=== PATIENT | female | born 1990 | race Caucasian/White ===

== ENCOUNTER 2017-03-22 18:53 | Emergency (ER) | payer MEDICAID ==
[~2017-03-22] VITALS: Ht 154.9 cm; Wt 53.1 kg
[~2017-03-22 18:53] MED LIST: ALPR0.25 PO; CA C-2 PO; CALC0.5C11 PO; CALC500T3 PO
--- NOTE | 2017-03-22 19:18 | NUR ---
Assumed care of patient at this time. Pt resting in a position of comfort for self. Pt seen by MD. [place] at bedside
[2017-03-22 19:34] LABS: BASOPHILS % (AUTO) 0.8 % (0.0-2.0); EOSINOPHILS # (AUTO) 0.1 K/uL (0.0-0.7); EOSINOPHILS % (AUTO) 0.9 % (0.0-7.0); HEMATOCRIT 39.5 % (31.2-41.9); HEMOGLOBIN 13.4 g/dL (10.9-14.3); LYMPHOCYTES # (AUTO) 2.4 K/uL (20.0-40.0); LYMPHOCYTES % (AUTO) 39.2 % (20.5-51.5); MEAN CORPUSCULAR HEMOGLOBIN 28.3 uug (24.7-32.8); MEAN CORPUSCULAR HGB CONC 34 g/dL (32.3-35.6); MEAN CORPUSCULAR VOLUME 83.5 fL (75.5-95.3); MONOCYTES # (AUTO) 0.5 K/uL (2.0-10.0); NEUTROPHILS # (AUTO) 3.2 K/uL (1.8-8.9); NEUTROPHILS % (AUTO) 51.1 % (38.5-71.5); PLATELET COUNT (AUTO) 282 K/uL (179-408); RED BLOOD CELL COUNT(AUTO) 4.74 MIL/uL (3.63-4.92); WHITE BLOOD COUNT (AUTO) 6.2 K/uL (3.8-11.8)
[2017-03-22 19:38] LABS: CREATININE 0.8 mg/dL (0.6-1.3); POTASSIUM 3.8 mmol/L (3.5-5.1)
--- NOTE | 2017-03-22 19:50 | NUR ---
Pt stable for discharge per MD. Pt given ACI. Pt verbalized understanding of dc instructions. Pt ambulated out of ER with steady gait.
[2017-03-22 20:08] VITALS: BP 119/69
== END 2017-03-22 19:50 | disposition home or self-care (01) ==
LOC: ER 18:53
DX: M94.0 Chondrocostal junction syndrome [Tietze] (principal); Z88.1 Allergy status to other antibiotic agents; E20.9 Hypoparathyroidism, unspecified
CPT/HCPCS: 36415; 71045; 84703; 85025; 93005; A4663

== ENCOUNTER 2017-05-12 05:03 | Emergency (ER) | payer MEDICAID ==
[~2017-05-12] VITALS: Ht 154.9 cm; Wt 54.4 kg
[2017-05-12] MEDS ORDERED: METOCLOPRAMIDE HCL 10 MG/2 ML VIAL IV ONE (05:30)
[2017-05-12] MEDS ORDERED: LORAZEPAM 2 MG/1 ML VIAL IV ONE (05:30)
[2017-05-12] MEDS ORDERED: METOCLOPRAMIDE HCL 10 MG/2 ML VIAL ONE (05:41)
[2017-05-12] MEDS ORDERED: LORAZEPAM 2 MG/1 ML VIAL ONE (05:41)
--- NOTE | 2017-05-12 05:46 | NUR ---
PT IS IN ROOM #1B. DR BEAULIEU EVALUATED THE PT.
[2017-05-12] MEDS ORDERED: diphenhydrAMINE 50 MG/1 ML VIAL ONE (05:54)
[2017-05-12] MEDS ORDERED: diphenhydrAMINE 50 MG/1 ML VIAL IV ONE (06:00)
[2017-05-12] MEDS ORDERED: methylPREDNISolone SOD SUCC 125 MG/2 ML VIAL ONE (06:12)
[2017-05-12] MEDS ORDERED: methylPREDNISolone SOD SUCC 125 MG/2 ML VIAL IV ONE (06:15)
--- NOTE | 2017-05-12 06:22 | NUR ---
PT WAS D/C TO HOME AFTER DR BEAULIEU EVALUATION. D/C INSTRUCTIONS GIVEN TO THE PT. NO S/S OF DISTRESS AT THIS TIME. GAIT IS STABLE. NO N/V. NO SOB. PT DENIES DIZZINESS AND PAIN.
[2017-05-12 06:25] VITALS: BP 125/63
== END 2017-05-12 06:26 | disposition home or self-care (01) ==
LOC: ER 05:03
DX: R42 Dizziness and giddiness (principal); Z88.1 Allergy status to other antibiotic agents; Z88.8 Allergy status to other drugs, medicaments and biological substances; Z79.899 Other long term (current) drug therapy
CPT/HCPCS: A4663; J1200; J2060; J2765; J2930

== ENCOUNTER 2017-05-12 17:00 | Emergency (ER) | payer MEDICAID ==
[~2017-05-12] VITALS: Ht 154.9 cm; Wt 54.4 kg
[2017-05-12 17:50] LABS: BASOPHILS # (AUTO) 0.1 K/uL (0.0-8.0); BASOPHILS % (AUTO) 1.2 % (0.0-2.0); HEMATOCRIT 42.1 % (31.2-41.9); HEMOGLOBIN 13.8 g/dL (10.9-14.3); LYMPHOCYTES # (AUTO) 0.4 K/uL (20.0-40.0); MEAN CORPUSCULAR HEMOGLOBIN 27.3 uug (24.7-32.8); MEAN CORPUSCULAR HGB CONC 33 g/dL (32.3-35.6); MEAN CORPUSCULAR VOLUME 83.3 fL (75.5-95.3); MONOCYTES # (AUTO) 0.1 K/uL (2.0-10.0); MONOCYTES % (AUTO) 1.8 % (0.0-11.0); NEUTROPHILS # (AUTO) 7.4 K/uL (1.8-8.9); PLATELET COUNT (AUTO) 309 K/uL (179-408); RED BLOOD CELL COUNT(AUTO) 5.06 MIL/uL (3.63-4.92); WHITE BLOOD COUNT (AUTO) 8.1 K/uL (3.8-11.8)
[2017-05-12 17:59] LABS: CREATININE 0.7 mg/dL (0.6-1.3); POTASSIUM 4.4 mmol/L (3.5-5.1)
[2017-05-12 18:05] LABS: BILIRUBIN,TOTAL 0.3 mg/dL (0.2-1.0); TOTAL PROTEIN, SERUM 8.7 g/dL (6.4-8.2)
--- NOTE | 2017-05-12 18:10 | NUR ---
DR MOORE MADE PATIENT AWARE OF TEST RESULTS WILL BE DC HOME.
--- NOTE | 2017-05-12 18:17 | NUR ---
Patient discharged to home in stable conditon. Written and verbal after care instructions given. Patient verbalizes understanding of instructions.
[2017-05-12 18:18] VITALS: BP 115/78
== END 2017-05-12 18:19 | disposition home or self-care (01) ==
LOC: ER 17:01
DX: Z00.00 Encounter for general adult medical examination without abnormal findings (principal); Z88.1 Allergy status to other antibiotic agents; Z88.8 Allergy status to other drugs, medicaments and biological substances; Z79.899 Other long term (current) drug therapy
CPT/HCPCS: 36415; 85025; A4663

== ENCOUNTER 2018-09-21 04:42 | Emergency (ER) | payer MEDICAID ==
[~2018-09-21] VITALS: Ht 154.9 cm; Wt 57.2 kg
[~2018-09-21 04:42] MED LIST changes: -CALC500T3 PO; +CALC500T88 PO
[2018-09-21 05:29] LABS: CREATININE 0.7 mg/dL (0.6-1.3); POTASSIUM 3.5 mmol/L (3.5-5.1)
[2018-09-21] MEDS ORDERED: CALCIUM GLUCONATE IV 1 GM in IV DEXTROSE 5% 50 ML IV ONE (06:15)
[2018-09-21] MEDS ORDERED: MAGNESIUM SULFATE/D5W 100 ML IV SCH (06:15)
[2018-09-21] MEDS ORDERED: CALCIUM GLUCONATE 1 GM/10 ML VIAL IV ONE (06:18)
[2018-09-21] MEDS ORDERED: MAGNESIUM SULFATE/D5W 100 ML ONE (06:50)
--- NOTE | 2018-09-21 07:03 | NUR ---
pt is resting comfortably in bed. calcium gluconate infusion administered already. magnesium sulfate drip infusing currently. pt appears in no apparent distress. report given to day shift for continuity of care. vital signs stable.
--- NOTE | 2018-09-21 07:22 | NUR ---
IV calcium gluconate completed and infused. Pt tolerated well and nad noted.
--- NOTE | 2018-09-21 08:00 | NUR ---
Patient discharged to home in stable conditon. Written and verbal after care instructions given. PIV removed. Patient verbalizes understanding of instructions.
== END 2018-09-21 08:00 | disposition home or self-care (01) ==
LOC: ER 04:44
DX: F41.9 Anxiety disorder, unspecified (principal); Z88.1 Allergy status to other antibiotic agents; Z88.8 Allergy status to other drugs, medicaments and biological substances; Z79.899 Other long term (current) drug therapy
CPT/HCPCS: 36415; 71045; 80048; 96365; 96368; 99284; J0610; J3475; J7060; A4663

== ENCOUNTER 2018-11-09 03:25 | Emergency (ER) | payer MEDICAID ==
[~2018-11-09] VITALS: Ht 154.9 cm; Wt 56.7 kg
--- NOTE | 2018-11-09 03:27 | NUR ---
MD AT BEDSIDE FOR HX AND PHYSICAL PT ABLE TO SPEAK CLEAR AND COMPLETE SENTENCES, DENIES SOB/DENIES FEVERISH/CHILLS/DENIES HEADACHE/NVD DENIES HITTING HEAD,DENIES LOC, DENIES EXTREMITY WEAKNESS NO FACIAL DROOP PT NAD, SIDERAILSX2 UP,BED AT LOWEST POSITION
--- NOTE | 2018-11-09 03:40 | NUR ---
LAB AT BEDSIDE
[2018-11-09 04:03] LABS: BASOPHILS # (AUTO) 0.1 K/uL (0.0-8.0); BASOPHILS % (AUTO) 1.7 % (0.0-2.0); EOSINOPHILS # (AUTO) 0.1 K/uL (0.0-0.7); EOSINOPHILS % (AUTO) 1.2 % (0.0-7.0); HEMATOCRIT 37.5 % (31.2-41.9); LYMPHOCYTES # (AUTO) 2.8 K/uL (20.0-40.0); LYMPHOCYTES % (AUTO) 35.7 % (20.5-51.5); MEAN CORPUSCULAR HEMOGLOBIN 29.1 uug (24.7-32.8); MEAN CORPUSCULAR HGB CONC 35 g/dL (32.3-35.6); MEAN CORPUSCULAR VOLUME 83.9 fL (75.5-95.3); MONOCYTES # (AUTO) 0.7 K/uL (2.0-10.0); MONOCYTES % (AUTO) 8.9 % (0.0-11.0); NEUTROPHILS # (AUTO) 4.1 K/uL (1.8-8.9); NEUTROPHILS % (AUTO) 52.5 % (38.5-71.5); PLATELET COUNT (AUTO) 301 K/uL (179-408); RED BLOOD CELL COUNT(AUTO) 4.47 MIL/uL (3.63-4.92); WHITE BLOOD COUNT (AUTO) 7.8 K/uL (3.8-11.8)
[2018-11-09 04:06] LABS: CREATININE 0.6 mg/dL (0.6-1.3); POTASSIUM 3.5 mmol/L (3.5-5.1)
[2018-11-09 04:11] LABS: BILIRUBIN,DIRECT 0.1 mg/dL (0.0-0.2); BILIRUBIN,TOTAL 0.4 mg/dL (0.2-1.0); TOTAL PROTEIN, SERUM 7.9 g/dL (6.4-8.2)
--- NOTE | 2018-11-09 04:44 | NUR ---
Patient discharged to home in stable conditon. Written and verbal after care instructions given. Patient verbalizes understanding of instructions. AMBULATORY W/ STABLE GAIT ALL BELONGINGS W/ PT
[2018-11-09 04:47] VITALS: BP 109/93
== END 2018-11-09 04:47 | disposition home or self-care (01) ==
LOC: ER 03:27
DX: R20.2 Paresthesia of skin (principal); Z88.1 Allergy status to other antibiotic agents; Z88.8 Allergy status to other drugs, medicaments and biological substances; Z79.899 Other long term (current) drug therapy
CPT/HCPCS: 36415; 85025; A4663

== ENCOUNTER 2019-03-02 06:51 | Emergency (ER) | payer MEDICAID ==
[~2019-03-02] VITALS: Ht 154.9 cm; Wt 56.7 kg
--- NOTE | 2019-03-02 07:08 | NUR ---
PATIENT WAS MSE BY DR JENKINS IN ROOM 05A. PATIENT A & O X4.
--- NOTE | 2019-03-02 07:19 | NUR ---
Patient discharged to home in stable conditon. Written and verbal after care instructions given. Patient verbalizes understanding of instructions.PT WALKS IN [id number] GAIT.
[2019-03-02 07:23] LABS: *BILIRUBIN,URIN NEGATIVE (NEGATIVE); *CLARITY,URINE CLOUDY (CLEAR); *COLOR,URINE YELLOW (YELLOW); *KETONES,URINE 1+ (NEGATIVE); *UROBILINOGEN,URINE 0.2 E.U./dl (NORMAL); LEUKOCYTE ESTERASE ,URINE NEGATIVE (NEGATIVE); NITRITE, URINE NEGATIVE (NEGATIVE); UGLUCOSE NEGATIVE (NEGATIVE)
[2019-03-02 07:30] LABS: *BLOOD, URINE TRACE (NEGATIVE)
[2019-03-02 07:31] LABS: *URINE HCG, QUAL NEGATIVE (NEGATIVE)
[2019-03-02 07:34] LABS: BACTERIA,URINE MANY /HPF (NONE SEEN); SQUAMOUS EPITHELIAL CELL,UR MODERATE /HPF (NONE SEEN); YEAST,URINE RARE /HPF (NONE SEEN)
[2019-03-02 07:37] LABS: URINE AMORPHOUS PHOSPHATES MODERATE /HPF
== END 2019-03-02 07:23 | disposition home or self-care (01) ==
LOC: ER 06:54
DX: N39.0 Urinary tract infection, site not specified (principal); B96.29 Other Escherichia coli [E. coli] as the cause of diseases classified elsewhere; Z88.1 Allergy status to other antibiotic agents; Z88.8 Allergy status to other drugs, medicaments and biological substances; Z79.899 Other long term (current) drug therapy
CPT/HCPCS: 84703; 87086; A4663

== ENCOUNTER 2020-06-16 14:49 | Emergency (ER) | payer MEDICAID ==
[~2020-06-16] VITALS: Ht 154.9 cm; Wt 59.0 kg
--- NOTE | 2020-06-16 14:59 | NUR ---
MD at bedside at this time.
[2020-06-16] MEDS ORDERED: IV NORMAL SALINE 1000 ML BAG IV ONE (15:15)
[2020-06-16 15:43] LABS: CARBON DIOXIDE 27 mmol/L (21-32); CHLORIDE 101 mmol/L (98-107); CREATININE 0.8 mg/dL (0.6-1.3); GLUCOSE 105 mg/dL (74-106); POTASSIUM 3.5 mmol/L (3.5-5.1); UREA NITROGEN, BLOOD 9 mg/dL (7-18)
[2020-06-16 15:45] LABS: BASOPHILS % (AUTO) 0.6 % (0.0-2.0); EOSINOPHILS # (AUTO) 0.1 K/uL (0.0-0.7); HEMATOCRIT 37.6 % (31.2-41.9); HEMOGLOBIN 12.6 g/dL (10.9-14.3); LYMPHOCYTES # (AUTO) 1.8 K/uL (20.0-40.0); LYMPHOCYTES % (AUTO) 24.6 % (20.5-51.5); MEAN CORPUSCULAR HEMOGLOBIN 28.1 uug (24.7-32.8); MEAN CORPUSCULAR HGB CONC 33 g/dL (32.3-35.6); MEAN CORPUSCULAR VOLUME 84.2 fL (75.5-95.3); MONOCYTES # (AUTO) 0.7 K/uL (2.0-10.0); NEUTROPHILS # (AUTO) 4.8 K/uL (1.8-8.9); NEUTROPHILS % (AUTO) 63.8 % (38.5-71.5); PLATELET COUNT (AUTO) 344 K/uL (179-408); RED BLOOD CELL COUNT(AUTO) 4.47 MIL/uL (3.63-4.92); WHITE BLOOD COUNT (AUTO) 7.5 K/uL (3.8-11.8)
[2020-06-16 15:58] LABS: ALANINE AMINOTRANSFERASE 19 U/L (14-59); ALKALINE PHOSPHATASE 63 U/L (50-136); ASPARTATE AMINOTRANSFERASE 20 U/L (15-37); BILIRUBIN,DIRECT 0.1 mg/dL (0.0-0.2); BILIRUBIN,TOTAL 0.4 mg/dL (0.2-1.0); TOTAL PROTEIN, SERUM 7.7 g/dL (6.4-8.2)
--- NOTE | 2020-06-16 16:07 | NUR ---
Pt resting in bed w/ both eyes closed, NAD noted. Pt's mother in room w/ patient.
[2020-06-16 16:12] LABS: *BILIRUBIN,URIN NEGATIVE (NEGATIVE); *BLOOD, URINE NEGATIVE (NEGATIVE); *CLARITY,URINE CLEAR (CLEAR); *COLOR,URINE YELLOW (YELLOW); *KETONES,URINE NEGATIVE (NEGATIVE); *UROBILINOGEN,URINE 0.2 E.U./dl (NORMAL); LEUKOCYTE ESTERASE ,URINE NEGATIVE (NEGATIVE); NITRITE, URINE NEGATIVE (NEGATIVE); PH,URINE 8.5 (5.0-8.0); UGLUCOSE NEGATIVE (NEGATIVE)
--- NOTE | 2020-06-16 16:29 | NUR ---
IV removed. Catheter intact and site benign. Pressure and 4x4 gauze applied to site. No bleeding noted.
[2020-06-16 16:33] VITALS: BP 121/77
--- NOTE | 2020-06-16 16:34 | NUR ---
Patient discharged to home in stable condition, able to ambulate with steady gait accompanied by mother. Written and verbal after care instructions given. Patient verbalizes understanding of instructions. Stressed follow up or return to ER for worsening s/s.
== END 2020-06-16 16:36 | disposition home or self-care (01) ==
LOC: ER 14:49
DX: R55 Syncope and collapse (principal); Z88.0 Allergy status to penicillin
CPT/HCPCS: 36415; 70030-TC; 71045; 85025; 93005; A4663; J7030

== ENCOUNTER 2021-03-02 14:09 | Emergency (ER) | payer MEDICAID ==
[~2021-03-02] VITALS: Ht 154.9 cm; Wt 59.0 kg
--- NOTE | 2021-03-02 16:36 | NUR ---
Patient discharged to home in stable condition. Written and verbal after care instructions given. Patient verbalizes understanding of instructions. Stressed follow up or return to ER for worsening s/s.
== END 2021-03-02 16:36 | disposition home or self-care (01) ==
LOC: ER 14:09
DX: U07.1 COVID-19 (principal); R00.1 Bradycardia, unspecified; Z88.0 Allergy status to penicillin; E20.9 Hypoparathyroidism, unspecified
CPT/HCPCS: 71045; 93005; A4663